=== PATIENT | male | born 1960 | race Caucasian/White ===

== ENCOUNTER 2023-11-14 11:50 | Emergency (ER) | payer MEDICARE, OTHER, SELFPAY ==
[2023-11-14 11:52] VITALS: BP 210/104
[2023-11-14 12:08] VITALS: BP 164/80
[2023-11-14 12:12] VITALS: BP 164/80; BMI 26.2
--- NOTE | 2023-11-14 12:44 | ED.GENMED ---
History of Present Illness
General
Chief Complaint: Blood Pressure Problem
Source: patient
Exam Limitations: none
Time Seen by Provider: 11/14/23 12:34
History of Present Illness
History of Present Illness:
See MDM
Past History
Past History
ED Past Medical History: HTN
ED Past Surgical History: None
Social History
Tobacco: Non-smoker
Personal:
Phy Exam
Physical Exam
Physical Exam:
See MDM
Course
Orders/Labs/Results
Orders:
Orders
11/14/23 11:55
Electrocardiogram (*1) Urgent
Reason for Study: Hypertension, Benign
EKG- Treatment ONCE
11/14/23 12:51
Troponin I Urgent
Vital Signs
Initial and Last Documented VS:
Initial Vital Signs
Temp Pulse Resp BP Pulse Ox
100.0 F 88 18 210/104 98
11/14/23 11:52 11/14/23 11:52 11/14/23 11:52 11/14/23 11:52 11/14/23 11:52
Last Documented Vital Signs
Temp Pulse Resp BP Pulse Ox
98.5 F 61 9 153/75 96
11/14/23 12:12 11/14/23 13:00 11/14/23 12:15 11/14/23 13:00 11/14/23 13:00
MDM/Problems Addressed
Differential Diagnosis Includes:
HPI and MDM Narrative:
63-year-old male presenting with high blood pressure. Patient intermittently takes his blood pressure at home and he noted the readings were around 200/100. Patient became nervous and started to notice palpitations and headache and he came to
emergency department. Blood pressure is resolving without intervention and patient is starting to feel better. He does acknowledge that the high number might of sparked his anxiety. He also agrees to a poor diet and recently ate very salty pork
roll for breakfast this morning. His blood pressure has been increasing lately and his PCP placed him on another blood pressure medication a few days ago but patient has been nervous to take it. Since all of his symptoms have resolved, we
discussed going home and start the medication and having this discussion with his PCP.
Although the chest pressure is almost completely resolved, EKG is normal. Will obtain 1 troponin. His headache is resolved without intervention
Physical exam
General: Well appearing and non-toxic
HEENT: protecting airway. Pupils equal and reactive
Neck: appears supple
CV: No evidence of cyanosis. Regular rate and rhythm
Resp: No accessory muscle use. Lungs clear
Abd: Non-distended
Extremities: No deformities. No leg edema
Neuro: alert
Psych: Normal affect
Skin: Intact
Problems Addressed including Acute and Chronic Conditions affecting care:
1. Hypertension
Acuity: acute
Prognosis: stable
Details: Symptoms are improving without intervention. Discussed taking his prescribed medication
2. Chest pressure and palpitation
Acuity: acute
Prognosis: stable
Details: Started to improve when he is he realized that the blood pressure was improving. Given no exertional component, doubt ACS especially in the setting of a nonischemic EKG. Will obtain 1 troponin
Updates
Troponin negative. Patient feeling much better knowing that there is no evidence of acute coronary syndrome. Discussed taking his medications as prescribed. He feels comfortable going
Differential Diagnosis (but not limited to): Medication noncompliance, poor diet, anxiety, essential hypertension
Testing considered: CT head but he has resolved headache. We discussed repeating blood work but he just had a week ago.
Drug therapy (if applicable): OTC meds, please see d/c instruction regarding Rx drugs
Amount and/or Complexity of Data Reviewed
Clinical info obtained from: Patient
External data reviewed: N/A
Labs I independently reviewed (but not limited to): Troponin negative
Radiology: N/A
Pulse Ox: not hypoxic
EKG independently reviewed: Sinus rhythm, normal axis, no STEMI
Seat Pack Inspector: Sinus rhythm
Critical Care: N/A
Risk of Complication:
Social Determinants of health: Good social support
Discussed with other providers: N/A
Escalation of Care includes Admit/Obs: After being observed in the Emergency Department, pt stable for discharge.
Occasional wrong word or 'sound a like' substitutions may have occurred due to the inherent limitations of voice recognition software. Read the chart carefully and recognize, using context, where substitutions have occurred.
*Critical Care Note
Total Time (30-74mins, 75-104mins- exclusive of procedures): Not Applicable
ED Attending Note
-
Portions of this chart may have been created with voice recognition software.� Occasional wrong word or��sound alike� substitutions may have occurred due to the inherent limitations of voice recognition software.
Discharge Plan
Departure
Patient Disposition: Home (Routine Discharge)
Date of Disposition: 11/14/23
Time of Disposition: 13:46
Patient with high blood pressure during this ER visit?: Yes
Discharge Problem:
HTN (hypertension)
Instructions: High Blood Pressure (DC), BLOOD PRESSURE
Prescriptions:
No Action
lisinopril [Prinivil] 20 MG tablet
20 mg PO DAILY
amlodipine [Norvasc] 5 MG tablet
5 mg PO DAILY
sertraline 50 MG tablet
50 mg PO HS
cholecalciferol (vitamin D3) 2,000 UNITS tablet
4,000 units PO DAILY
pediatric multivitamin no.17 1 TABLET tablet,chewable
1 ea PO DAILY
Referrals:
Fide Washington DO [Family Provider] -
Activity Restrictions/Additional Instructions:
Please return for any worsening symptoms.
You may return at any time if you have further concerns.
Please follow up with your doctor at the first available appointment, preferably this week.
Please take the blood pressure medication as prescribed.
Thank you for choosing [facility].
Interventions
Interventions:
*Risk Screen - Suicide Last Done: 11/14/23 11:52
*General Assessment Last Done: 11/14/23 11:52
*Neglect/Abuse Screening Last Done: 11/14/23 11:52
ED- Fall Risk Assessment Last Done: 11/14/23 12:12
*ED COVID-19 Vaccine History Last Done: 11/14/23 11:52
ED- Cardiac Assessment Last Done: 11/14/23 12:12
ED- Neurological Assessment Last Done: 11/14/23 12:12
ED- Pulmonary Assessment Last Done: 11/14/23 12:12
Discharge Date and Time
Print Language: CITIZ[place]
[2023-11-14 12:48] VITALS: BP 162/74
[2023-11-14 13:00] VITALS: BP 153/75
[2023-11-14 13:27] LABS: Troponin I < 0.012 ng/ml
[2023-11-14 13:51] VITALS: BP 153/75
== END 2023-11-14 13:54 | disposition home or self-care (01) ==
LOC: EMR 11:50
PROVIDERS: EMERGENCY PHYSICIAN Student in an Organized Health Care Education/Training Program; FAMILY PHYSICIAN Internal Medicine
DX: I10 Essential (primary) hypertension (principal)
CPT/HCPCS: 99283; 84484; 93005